=== PATIENT | male | born 1940 | race Caucasian/White ===

== ENCOUNTER 2025-02-13 13:38 | Outpatient (REF) | payer MEDICARE, SELFPAY ==
[2025-02-13 13:49] LABS: Appearance Urine Turbid; Color Urine Yellow; Glucose Urine UA Negative (Negative); Leukocyte Esterase Urine Large (3+) (Negative); Nitrite Urine Positive (Negative); Specific Gravity - Urine 1.015 (1.005-1.025); UMIC TRIGGER UA YES; Urine Blood Small (1+) (Negative); Urine Ketones Negative (Negative); Urine Protein Trace mg/dL (Neg-Trace)
[2025-02-13 13:58] LABS: Bacteria Urine 4+ (None Seen); Calcium Oxalate Crystals Urine Present; RBC Urine 0-2 /HPF (0-2); Squamous Epithelial Cell Urine 0-2 /HPF (0-2); WBC Clumps Urine Present; WBC Urine >50 /HPF (0-5)
--- OUTSIDE RECORDS SUMMARY | 2025-02-13 14:51 | XMS_ITS | Patient Health Record ---
Author Organization Bryson Ritter III, MD Address [address] [place] [address] [place] [address] Care Team Providers Care Effervescent Salts Compounder Name Role Phone Megan Huitron MD Primary Care Provider Bryson Flaherty Unavailable [phone] Allergies Allergen (clinical drug ingredient) Drug/Non Drug Allergy documented on EMR Reaction Allergy Type Onset Date Status No Known Drug Allergy Unknown Drug Allergy Active Results Component Value Reference Range Notes URINE DIP STICK Reviewed date:02/13/2025 11:47:50 AM Interpretation:Abnormal Performing Lab: Notes/Report: Abnormal SG 1.005 1.005 - 1.025 pH 6.0 5.0 - 9.0 CORTEZ 125++ Negative - NIT ++ Negative - PRO 30+ Negative - Trace GLU neg Negative - KET neg Negative - UBG 1.0 0.1 - 1.8 ANTWON neg 0.2 - 1.3 BLD 50++ Negative - Menstrating N/A Urinalysis and Microscopic ( Not yet reviewed by provider) Interpretation: Performing Lab:[facility], [address] [place] [phone] Notes/Report: Color Urine Yellow Appearance Urine Turbid PH 7.0 5.0-9.0 Glucose Urine UA Negative Negative mg/dL Urine Blood Small (1+) Negative Specific [place] - Urine 1.015 1.005-1.025 Urine Protein Trace Neg-Trace mg/dL Urine Ketones Negative Negative mg/dL Nitrite Urine Positive Negative Leukocyte Esterase Urine Large (3+) Negative RBC Urine 0-2 0-2 /HPF WBC Urine >50 0-5 /HPF WBC Clumps Urine Present Squamous Epithelial Cell Urine 0-2 0-2 /HPF Calcium Oxalate Crystals Urine Present Bacteria Urine 4+ None Seen Hyaline Casts Urine 6-10 0-2 /LPF Reason For Referral No Information Social History Tobacco Use: Social History Observation Description Date Details (start date - stop date) Never Smoker NA - NA Sex Assigned At : Social History Observation Description Sex Assigned At Male Tobacco Use/Smoking Question Answer Notes Patient is a nonsmoker Additional Findings: Tobacco Non-User Aggressive non-smoker Alcohol Screen Question Answer Notes Did you have a drink containing alcohol in the p ast year? No Points 0 Interpretation Negative Problems Problem Type SNOMED Code ICD Code Onset Dates Problem Status W/U Status Risk Notes Problem 60515294 Essential hypertension (I10) Active confirmed His blood pressure is 114/68. His weight is normal. Recommend continue salt restriction. No change in his medications was necessary. Problem [id number] Benign prostatic hyperplasia with lower urinary tract symptoms (N40.1) Active confirmed He rises from sleep once or twice a night to urinate. We have discussed lifestyle modifications he could make to reduce nocturia. 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 [facility] and [facility] instructed him to request audiology and hearing aids. Problem 344896908 Primary osteoarthritis involving multiple joints (M89.49) Active confirmed He has arthritic pain in the hips and knees and shoulders. I have recommended ibuprofen, heat and rest. 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 Surveillance will continue. Vital Signs Heart Rate 55 /min 02/13/2025 Temperature 97.0 degrees Fahrenheit 02/13/2025 Blood pressure diastolic 83 mm Hg 02/13/2025 Height 67 in 02/13/2025 Blood pressure systolic 134 mm Hg 02/13/2025 Weight 155 lbs 02/13/2025 BMI 24.27 kg/m2 02/13/2025 Encounters Encounter Location Date Provider Diagnosis Bryson Ritter III, MD [address] [place] [address] [place] [address] 02/13/2025 Bryson Ritter Annual physical exam Z00.00 and UTI symptoms R39.9 Bryson Ritter III, MD [address] [place] [address] [place] [address] 05/25/2024 Bryson Ritter Seminoma of descende d left testis C62.12 ; Essential hypertension I10 ; Primary osteoarthritis involving multiple joints M89.49 ; Sensorineural hearing loss (SNHL) of both ears H90.3 ; Benign prostatic hyperplasia with lower urinary tract symptoms N40.1 and Overweight E66.3 Bryson Ritter III, MD [address] [place] [address] [address] [place] [address] 09/25/2024 Bryson Ritter Seminoma of descende d left testis C62.12 ; Essential hypertension I10 ; Primary osteoarthritis involving multiple joints M89.49 ; Benign prostatic hyperplasia with lower urinary tract symptoms N40.1 and Sensorineural hearing loss (SNHL) of both ears H90.3 Bryson Ritter III, MD [address] [place] [address] [address] [place] [address] 09/25/2024 Bryson Ritter Assessments Encounter Date Diagnosis (ICD Code) Assessment Notes Treat ment Notes Treatment Clinical Notes 02/13/2025 Annual physical exam (ICD-10 - Z00.00) 05/25/2024 Essential hypertension (ICD-10 - I10) His blood pressure is 115/68. His weight is normal. Recommend continue salt restriction. No change in his medications was necessary. 05/25/2024 Seminoma of descende d left testis (ICD-10 - C62.12) There is no sign of relapse for new primary tumor. Surveillance will continue. 09/25/2024 Essential hypertension (ICD-10 - I10) His blood pressure is 114/68. His weight is normal. Recommend continue salt restriction. No change in his medications was necessary. 09/25/2024 Seminoma of descende d left testis (ICD-10 - C62.12) There is no sign of relapse for new primary tumor. Surveillance will continue. 02/13/2025 UTI symptoms (ICD-10 - R39.9) 05/25/2024 Primary osteoarthritis involving multiple joints (ICD-10 - M89.49) He has arthritic pain in the hips and knees and shoulders. I have recommended ibuprofen, heat and rest. 09/25/2024 Primary osteoarthritis involving multiple joints (ICD-10 - M89.49) He has arthritic pain in the hips and knees and shoulders. I have recommended ibuprofen, heat and rest. 05/25/2024 Sensorineural hearin g loss (SNHL) of both ears (ICD-10 - H90.3) He is moderately hard of hearing. [facility] an appointment [facility] and I instructed him to request audiology and hearing aids. 09/25/2024 Benign prostatic hyperplasia with lower urinary tract symptoms (ICD-10 - N40.1) He rises from sleep once or twice a night to urinate. We have discussed lifestyle modifications he could make to reduce nocturia. 05/25/2024 Benign prostatic hyperplasia with lower urinary tract symptoms (ICD-10 - N40.1) He rises from sleep once or twice a night to urinate. We have discussed lifestyle modifications he could make to reduce nocturia. 09/25/2024 Sensorineural hearin g loss (SNHL) of both ears (ICD-10 - H90.3) He is moderately hard of hearing. He has an appointment [facility] and I instructed him to request audiology and hearing aids. 05/25/2024 Overweight (ICD-10 - E66.3) Plan Of Treatment Pending Test Test Name Order Date PROFILE, FASTING (COMPREHENSIVE METABOLI C) 05/25/2024 PROFILE, FASTING (COMPREHENSIVE METABOLI C) 07/22/2023 PROFILE, FASTING (COMPREHENSIVE METABOLI C) 01/20/2022 PROFILE, FASTING (COMPREHENSIVE METABOLI C) 09/25/2024 PROFILE, RANDOM (COMPREHENSIVE METABOLIC ) 11/25/2023 PROFILE, RANDOM (COMPREHENSIVE METABOLIC ) 07/22/2022 LDH 11/25/2023 LDH 07/22/2022 LDH 07/22/2023 TSH (THYROID STIMULATING HORMONE) 2022 PSA, TOTAL 07/22/2022 PSA, TOTAL 01/20/2022 PSA, TOTAL 09/25/2024 PSA, TOTAL 07/22/2023 CBC w DIFF 07/22/2022 CBC w DIFF 01/20/2022 CBC w DIFF 09/25/2024 SED RATE (ESR) 07/22/2023 URINALYSIS (UA) 02/13/2025 ALPHA-FETOPROTEIN,TUMOR MARKER 2 ALPHA-FETOPROTEIN,TUMOR MARKER 4 HCG TUMOR MARKER 07/22/2022 CBC WITH AUTO DIFF 05/25/2024 CBC WITH AUTO DIFF 07/22/2023 CBC WITH AUTO DIFF 11/25/2023 Urinalysis and Microscopic 02/13/2025 Lipid Panel 01/20/2022 Lipid Panel 09/25/2024 Lipid Panel 05/25/2024 Lipid Panel 07/22/2023 HCG Tumor Marker 07/22/2023 HCG Tumor Marker 11/25/2023 Alpha Fetoprotein 07/22/2023 Urine Culture 02/13/2025 Next Appt Details Provider Name:Bryson Ritter, 08/16/2025 10:30:00 AM, [address] [facility] [address], [place], [address], Provider Name:Bryson Ritter, 02/15/2026 10:00:00 AM, [address] [facility] [address], [place], [address], Insurance Providers Payer Name Payer Address Payer Phone Subscriber Number Group Number Insured Name Patient Relationship to Insured Coverage Start Date Coverage End Date [employer] P[employer]ED [address] [place] [phone] [id number] VÍCTOR BORJA Self - patient is the insured MEDICARE NGS [address] [place] [phone] [id number] VÍCTOR BORJA Self - patient is the insured Medical (General) History Medical History History ICD Code seminoma left testicle November 2015 essential hypertension benign prostatic hypertrophy osteoarthritis colonic polyps subdural hematoma age 71 hydrocele hearing loss repeated cerumen impaction right hip fracture overweight The patient had cancer which has not rec urred in the past eight years. Surgical History Surgery Date(Month/Year) No history excision sebaceous cyst left neck right hip fracture bilateral cataract surgery 2007 cystoscopy 2010 cystoscopy 2004 orchiectomy, left testis, seminoma, [facility] November 2015 Hospitalization History Reason Date(Month/Year) No history
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
--- OUTSIDE RECORDS SUMMARY | 2025-02-13 14:51 | XMS_ITS ---
Author Organization Bryson Ritter III, MD Address [address] [place] [address] [place] [address] Care Team Providers Care Interpreter For The Deaf Name Role Phone Megan Huitron MD Primary Care Provider Bryson Flaherty Unavailable [phone] REASON FOR VISIT Message Social History Sex Assigned At : Social History Observation Description Sex Assigned At Male Encounters Encounter Location Date Provider Diagnosis Bryson Ritter III, MD [address] [place] [address] [place] [address] 09/25/2024 Bryson Ritter Plan Of Treatment Next Appt Details Provider Name:Bryson Ritter, 08/16/2025 10:30:00 AM, [address] [place] [address] [place], [address], Provider Name:Bryson Ritter, 02/15/2026 10:00:00 AM, [address] [place] [address] [place], [address], Progress Notes * VÍCTOR BORJA CDOB:[birth year] (84 yo M)Acc No.[id number]:09/25/2024 Patient:?VÍCTOR BORJA :1940???Age:84 Y???Sex:Male Address:[place], [address] * true * Date:? Generated for Printi ng/Faxing/eTransmitting on:?02/13/2025 02:51 PM EDT
--- OUTSIDE RECORDS SUMMARY | 2025-02-13 14:52 | XMS_ITS | Clinical Summary ---
Author Organization [facility] Address [address] [place] [address] Care Team Providers Care Storage Solutions Architect Name Role Phone Unavailable Primary Care Provider Unavailabl e Source Comments PLEASE NOTE, if this patient is a minor, it may be UNLAWFUL to discuss sensitive information that is contained in these records (such as FAMILY PLANNING, MENTAL HEALTH or SUBSTANCE ABUSE) with the minor patient's parent or other person without the patient's specific authorization.[facility] Allergies Active Allergy Reactions Criticality Noted Date Comments Lisinopril 01/09/2013 Medications No known medications Active Problems No known active problems Social History Tobacco Use Types Packs/Day Years Used Date Smoking Tobacco: Never Smokeless Tobacco: Never Tobacco Cessation:Counseling Given: Not Answered Social Connections Answer Date Recorded Connectedness 0 06/11/2024 Financial Resource Strain Answer Date R ecorded Financial Resource Strain 0 2022 Stress Answer Date Recorded Stress 0 07/09/2023 Physical Activity Answer Date Recorded Physical Activity 0 07/09/2023 Food Insecurity Answer Date Recorded Food 0 06/22/2024 Transportation Needs Answer Date Record ed Transportation 0 07/09/2023 Housing Stability Answer Date Recorded Housing 0 07/09/2023 Safety and Environment Answer Date Clay rded Safety 0 07/09/2023 Utilities Answer Date Recorded Utilities 0 07/09/2023 Employment Answer Date Recorded Stress 0 06/11/2024 Sex and Gender Information Value Date Recorded Sex Assigned at Not on file Legal Sex Male 8:33 AM PDT Gender Identity Not on file Sexual Orientation Not on file Last Filed Vital Signs Vital Sign Reading Time Taken Comments Blood Pressure 122/66 10/05/2023 3:04 PM EST Pulse 92 10/05/2023 3:04 PM EST Temperature - - Respiratory Rate - - Oxygen Saturation - - Inhaled Oxygen Concentration - - Weight - - Height - - Body Mass Index - - Plan of Treatment Health Maintenance Due Date Last Done Comments Dental Perio Charting 1940 Dental Prophy 1940 Tobacco Screening 1940 Advanced Care Planning 1940 Falls Prevention 2007 Imm-Zoster, Recombinant (2 of 3) 10/15/2014 08/20/20 14 Imm-Pneumococcal 65+ (2 of 2 - PPSV23) 08/20/2016 08/20/2015, 09/27/2011 Imm-DTaP/Tdap/Td (2 - Tdap) 11/17/2022 11/17/2012 [id number]-19 (3 - season) 2024 021, 11/26/2020 Imm-Influenza (#1) 2024 06/27/2021, 0 06/24/2020, 06/27/2019, Additional history exists Dental Examination 07/11/2024 07/09/2023 Alcohol and Drug Screen 09/27/2024 Depression Annual Screen 09/27/2024 Hypertension Screening (#1) 10/04/2024 Dental FMX/Pano 07/11/2028 07/09/2023 Procedures Procedure Name Priority Date/Time Associated Diagnosis Comments PANORAMIC RADIOGRAPHIC IMAGE Routine 07/09/2023 11:00 AM EDT Retained tooth root Caries Encounter for dental examination Full COMP ORAL EVALUATION - NEW/ESTABLISHED PATIENT Routine 07/09/2023 11:00 AM EDT Retained tooth root Caries Encounter for dental examination from Last 3 Months or Most Recently Relevant to Health Maintenance Insurance GENERIC - DENTAL
--- OUTSIDE RECORDS SUMMARY | 2025-02-13 14:52 | XMS_ITS ---
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 Name Role Phone Megan Mason MD Primary Care Provider Bryson Flaherty Unavailable [phone] Allergies Allergen (clinical drug ingredient) Drug/Non Drug [...] 1.3 BLD 50++ Negative - Menstrating N/A REASON FOR VISIT Annual Exam, no testing Social History Tobacco Use: Social History Observation Description Date Details (start date - stop date) Never Smoker NA - NA Sex Assigned At : Social History Observation Description Sex Assigned At Male Tobacco Use/Smoking Question Answer Notes Patient is a nonsmoker Additional Findings: Tobacco Non-User Aggressive non-smoker Vital Signs Temperature 97.0 degrees Fahrenheit 02/14/20 25 Blood pressure systolic 134 mm Hg 02/14/20 25 Blood pressure diastolic 83 mm Hg 025 Heart Rate 55 /min 02/13/2025 Height 67 in 02/13/2025 Weight 155 lbs 02/13/2025 BMI 24.27 kg/m2 02/13/2025 Encounters Encounter Location Date Provider Diagnosis Bryson Ritter III, MD [address] [place] [address] [place] [address] 02/13/2025 Bryson Ritter Annual physical exam Z00.00 and UTI symptoms R39.9 Assessments Encounter Date Diagnosis (ICD Code) Assessment Notes Treatment Notes Treatment Clinical Notes 02/13/2025 Annual physical exam (ICD-10 - Z00.00) 02/13/2025 UTI symptoms (ICD-10 - R39.9) Plan Of Treatment Pending Test Test Name Order Date URINALYSIS (UA) 02/13/2025 Urine Culture 02/13/2025 Next Appt Details Follow Up: 6 Months, Reason: OV Provider Name:Bryson Ritter, 08/16/2025 10:30:00 AM, [address] [place] [address] [address], [place], [phone], Provider Name:Bryson Ritter, 02/15/2026 10:00:00 AM, [address] [place] [address] [place], [address], Progress Notes * VÍCTOR BORJA CDOB:[birth year] (84 yo M)Acc No.[id number]:02/13/2025 Progress Notes Patient:?VÍCTOR BORJA C Provider:?Bryson Ritter MD :1940???Age:84 Y???Sex:Male Shaun e:02/13/2025 Address:[facility] [address], [address] [facility] Pcp:Megan Mason MD Subjective: * Chief Complaints: * ???1. Annual Exam. 2. No lorene ting. * HPI: ???Depression Screening:?PHQ-9?Little interest or pleasure in doing things?Not at all ?Feeling down, depressed, or hopeless?Not at all ?Trouble falling or staying asleep, or sleeping too much?Not at all ?Feeling tired or having little energy?Not at all ?Poor appetite or overeating?Not at all ?Feeling bad about yourself or that you are a failure, or have let yourself or your family down?Not at all ?Trouble concentrating on things, such as reading the newspaper or watching television?Not at all ?Moving or speaking so slowly that other people could have noticed; or the opposite, being so fidgety or restless that you have been moving around a lot more than usual?Not at all ?Thoughts that you would be better off or of hurting yourself in some way?Not at all ?Total Score?0 ???COVID-19 Screening:?seminoma,? htn, oa, bph, hearing loss is same, raiza kyle, needs lower denture partial,? ?nodules make partial not fit recommemded surg and he declined.? he is uncertain about surgery insde the mouth. hearing aids work,? spots on back marlon has moved on. 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 chanelle che, has appt with derm in [place] next month, neurotic about mouth and skin. ?Questions?Have you had any new onset fever, chills, cough, congestion, sore throat, shortness of breath, muscle aches??No ???Fall Risk Screening:?Fall History?Have you had any falls with injury in the past year??No ?Have you had two or more falls in the past year??No ?Fall Risk Assessment:? * ROS:?General/Constitutional:?pain?only normal aches and pains.?Chills?denies.?Fatigue?admits.?Fever?denies.?ENT:?Decreased hearing?denies.?Respiratory:?Cough?denies.?Cardiovascular:?Chest pain with exertion?denies.?Dyspnea on exertion?denies.?Shortness of breath?denies.?Gastrointestinal:?Constipation?denies.?Decreased appetite?denies.?Diarrhea?denies.?Heartburn?denies.?Nausea?denies.?Rectal bleeding?denies.?Vomiting?denies.?Hematology:?bruising?denies.?petechiae?denies.?Swollen glands?none have been noted.?Genitourinary:?Frequent urination?denies.?Musculoskeletal:?Muscle aches?denies.?Painful joints?denies.?Sciatica?denies.?Weakness?denies.?Skin:?Itching?denies.?Rash?denies.?Skin lesion(s)?denies.?Neurologic:?Difficulty speaking?denies.?Dizziness?denies.?Headache?denies.?Low back pain?denies.?Psychiatric:?Depressed mood?denies.? 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 * Surgical History:?orchiectom y, left testis, seminoma, [facility] November 2015, cystoscopy 2004, cystoscopy 2010, bilateral cataract surgery 2007, right hip fracture , excision sebaceous cyst left neck , No history . * Hospitalization/Major Diagno stic Procedure:?No history . * Family History:?Father: dece ased 80 yrs.?Mother: [...] Non-User?Aggressive non-smoker ???He is enrolled in the PR where he sees Dr. Mason at the [facility]. His Meghann suffers from dementia. His previous medical oncology was at [facility] in [place] which is now closed. 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 * Medications:?None * Allergies:?No Known Drug All ergy. Objective: * Vitals:?Ht: 67, Wt:155, BMI: 24.27, BP:134/83, HR:55, Temp:97.0, Wt-k.31. Assessment: * Assessment: 1.?Annual physical exam - Z0 0.00 (Primary)???2.?UTI symptoms - R39.9??? Plan: * Treatment: ? Value Reference Range ?SG 1.005 1.005 - 1.025 * ?pH 6.0 5.0 - 9.0 * ?CORTEZ 125++ Negative - * ?NIT ++ Negative - * ?PRO 30+ Negative - Trac e * ?GLU neg Negative - * ?KET neg Negative - * ?UBG 1.0 0.1 - 1.8 * ?ANTWON neg 0.2 - 1.3 * ?BLD 50++ Negative - * ?Menstrating N/A 2.?UTI symptoms?LAB: URINALYSIS (UA) ?LAB: Urine Culture * Procedure Codes:?30939 SYNCH AUDIO-ONLY EST SF 10, 27638 URINE-NO MICRO * Follow Up:?6 Months (Reason: OV) * Images: * The named appointment provid er may or may not be the originator of this progress note, and it is not deemed complete until electronically signed by the appointment provider. Sign off status: Pending * Provider:?Bryson Ritter MD Date:?01/26 Generated for Danielle deleon/Regla/Markitting on:?02/13/2025 02:51 PM EDT History and Physical Notes * HPI (History of Present Illness) Category Sub-Category Detail Notes Depression Screening PHQ-9 Little inte rest or pleasure in doing things: Not at all Feeling down, depressed, or hopeless: No t at all Trouble falling or staying asleep, or sl eeping too much: Not at all Feeling tired or having little energy: N ot at all Poor appetite or overeating: Not at all Feeling bad about yourself o r that you are a failure, or have let yourself or your family down: Not at all Trouble concentrating on thi ngs, such as reading the newspaper or watching television: Not at all Moving or speaking so slowly that other people could have noticed; or the opposite, being so fidgety or restless that you have been moving around a lot more than usual: Not at all Thoughts that you would be b leena off or of hurting yourself in some way: Not at all Total Score: 0 Fall Risk Screening Fall History Have you had any falls with injury in the past year?: No Have you had two or more falls in the st year?: No Fall Risk Assessment:: COVID-19 Screening Questions Have you had any new onset fever, chills, cough, congestion, sore throat, shortness of breath, muscle aches?: No
== END 2025-02-13 13:39 | disposition home or self-care (01) ==
LOC: HO.LNP 13:38
PROVIDERS: Visit Provider Internal Medicine Medical Oncology
DX: R39.9 Unspecified symptoms and signs involving the genitourinary system (principal)
CPT/HCPCS: 81001; 87086; 87186